=== PATIENT | male | born 1960 | race Caucasian/White ===

== ENCOUNTER 2018-10-08 07:30 | Emergency (ER) | payer OTHER ==
[2018-10-08 07:36] VITALS: BP 139/105
[2018-10-08] MEDS ORDERED: FLUORESCEIN SODIUM 1 MG STRIP OP ONE (07:41)
[2018-10-08] MEDS ORDERED: PROPARACAINE 0.5% 15 ML OPHT DROP ONE (07:42)
--- NOTE | 2018-10-08 08:17 | EDPHY ---
H & P Stated Complaint: r eye redness/saw pcp yesterday rx abx ointment Time Seen by Provider: 10/08/18 07:41 HPI/ROS: CHIEF COMPLAINT: Red eye, sensitive to light HISTORY OF PRESENT ILLNESS: 58-year-old male presents with a right eye. Onset of right eye 4 days ago. Associated with moderate eye pain, tearing and gradually increasing photophobia. The symptoms resolve with closing his eyes. No known foreign body. No change in vision. Does not wear contacts. REVIEW OF SYSTEMS: complete 10 point ROS reviewed and is negative except for the noted elements in the HPI - Personal History Current Tetanus Diphtheria and Acellular Pertussis (TDAP): Yes - Medical/Surgical History Hx Asthma: No Hx Chronic Respiratory Disease: No Hx Diabetes: No Hx Cardiac Disease: No Hx Renal Disease: No Hx Cirrhosis: No Hx Alcoholism: No Hx HIV/AIDS: No Hx Splenectomy or Spleen Trauma: No Other PMH: Chronic back pain - Social History Smoking Status: Never smoked - Physical Exam Exam: Visual Acuity: noted from Nurse's notes. Lids: no proptosis, no periorbital erythema or swelling, no vesicles Conjunctivae: erythema, no discharge Pupils: 3mm, equal round and reactive to light EOMI Cornea: Normal, clear, no dendrites or corneal abrasion Anterior chamber:Clear, no WBC or hyphema visualized Constitutional: Initial Vital Signs Temperature (C) 36.7 C 10/08/18 07:33 Heart Rate 83 10/08/18 07:33 Respiratory Rate 17 10/08/18 07:33 Blood Pressure 139/105 H 10/08/18 07:33 O2 Sat (%) 95 10/08/18 07:33 O2 Delivery Mode Room Air Allergies/Adverse Reactions: No Known Allergies Allergy (Verified 10/08/18 07:32) Home Medications: Medication Instructions Recorded Erythromycin 0.5% 10/08/18 Losartan Potassium 10/08/18 Prednisolone Acetate/Pf 1 drop RTEYE Q6 #1 btl 10/08/18 [Prednisolone Acet 1% Eye Drop] Medical Decision Making ED Course/Re-evaluation: Alcaine instilled in right eye and fluorescein exam performed by me. No fluorescein uptake. Intra-ocular pressure (3 measurements): 9, 10, 10. Presentation consistent with acute iritis. Ophthalmology consulted. d/w Dr. Alexandra, will place pt on Prednisolone 1% gtt qid and cyclopentolate 1 drop daily. Will f/u office in am. - Data Points Medications Given: Discontinued Medications Cyclopentolate HCl (Cyclogyl 1%) 1 drops OP EDNOW ONE Stop: 10/08/18 08:29 Last Admin: 10/08/18 08:39 Dose: Not Given Departure - Departure Disposition: Home, Routine, Self-Care Clinical Impression: Acute iritis of right eye Condition: Good Instructions: Iritis (ED) Additional Instructions: Cyclopentolate 1 drop in right eye daily. Referrals: Bunny Alexandra MD [Medical Doctor] - As per Instructions (Call tomorrow morning at 8am to make an appointment. Dr. Alexandra will see you tomorrow. ) Prescriptions: Prednisolone Acetate/Pf [Prednisolone Acet 1% Eye Drop] 1 drop RTEYE Q6 #1 btl
[2018-10-08] MEDS ORDERED: Cyclopentolate 1% 15 ML OPHT.BTL OP ONE (08:28)
== END 2018-10-08 08:44 | disposition home or self-care (01) ==
DX: H20.00 Unspecified acute and subacute iridocyclitis (principal)